=== PATIENT | male | born 1945 | race Caucasian/White ===

== ENCOUNTER → 2021-11-04 | Day surgery (SDC) | payer MEDICARE, OTHER ==
[2021-11-01 11:29] LABS: BASOPHILS % 0.5 % (0.0-1.0); EOSINOPHILS # (AUTO) 0.2 (0.0-0.4); EOSINOPHILS % 2.2 % (0.0-6.0); HEMATOCRIT 42.1 % (38.2-49.6); HEMOGLOBIN 12.3 g/dL (14.0-18.0); LYMPHOCYTES # (AUTO) 1.1 (1.0-3.2); LYMPHOCYTES % 13.8 % (18.0-39.1); MEAN CORPUSCULAR HEMOGLOBIN 28.3 pg (28-32); MEAN CORPUSCULAR HGB CONC 29.2 g/dL (31-35); MEAN CORPUSCULAR VOLUME 96.8 fL (81-99); MONOCYTES % 12.6 % (4.4-11.3); NEUTROPHILS # (AUTO) 5.7 (2.1-6.9); NEUTROPHILS % 70.8 % (38.7-80.0); PLATELET COUNT 192 x10e3/uL (140-360); RED BLOOD COUNT 4.35 x10e6/uL (4.3-5.7); RED CELL DISTRIBUTION WIDTH 15.4 % (11.7-14.4)
[2021-11-01 12:03] LABS: ANION GAP 14.9 mmol/L (8-16); CALCIUM 9.4 mg/dL (8.4-10.2); CREATININE, SERUM 1.24 mg/dL (0.72-1.25); POTASSIUM 4.9 mmol/L (3.5-5.1)
[~2021-11-04] MED LIST: ACETAMINOPHEN-1 EAC4 PF; ACETAMINOPHEN/CODEINE 300MG - 30MG TAB ONE; ALLOPURINOL100 MG PO; AMLODIPINE BESYL5 MG PO; AREDS PO; BUPIVACAINE HCL 0.25% 10ML MPF VIAL INJ ONE; CLINDAMYCIN 600MG / 50ML 50 ML IV ONE; DEXAMETHASONE SOD PHOS INJ 4 MG/ML SDV ONE; DEXTROSE 5% 250ML 250 ML IV ONE; DOXYCYCLINE HY100 M3 PO; EPHEDRINE SULFATE INJ 50 MG/ML VIAL ONE; FLOMAX0.4 MG PO; GLIMEPIRIDE2 MG PO; JANUVIA100 MG PO; KETOROLAC TROMETHAMINE 30 MG/ML VIAL ONE; LIDOCAINE HCL 2% LOCAL INJ 5 ML SDV VIAL INJ ONE; LIPITOR20 MG PO; LISINOPRIL20 MG PO; METFORMIN HCL500 MG PO; MUPIROCIN 2% OINT 22 GM TUBE ONE; ONDANSETRON HCL INJ 2MG/ML 2ML 2 MG/ML VIAL ONE; OXYBUTYNIN CHLOR5 MG PO; PROPOFOL IV EMULSION 10 MG/ML 20 ML VIAL ONE; SERTRALINE HCL50 MG PO; SEVOFLURANE INHAL SOLN 250 ML PEN BTL ONE; VICODIN PO; ZETIA10 MG PO
[2021-11-04 09:15] VITALS: BP 127/96
== END | disposition home or self-care (01) ==
LOC: OR 06:03
PROVIDERS: ATTEND Plastic Surgery
DX: G56.02 Carpal tunnel syndrome, left upper limb (principal); M65.832 Other synovitis and tenosynovitis, left forearm; M65.351 Trigger finger, right little finger; I10 Essential (primary) hypertension; E11.9 Type 2 diabetes mellitus without complications; I25.10 Atherosclerotic heart disease of native coronary artery without angina pectoris; I48.0 Paroxysmal atrial fibrillation; I49.3 Ventricular premature depolarization; I44.0 Atrioventricular block, first degree; I45.10 Unspecified right bundle-branch block; M54.2 Cervicalgia; M54.9 Dorsalgia, unspecified; Z88.0 Allergy status to penicillin; Z01.810 Encounter for preprocedural cardiovascular examination; Z01.812 Encounter for preprocedural laboratory examination; Z01.818 Encounter for other preprocedural examination; Z20.822 Contact with and (suspected) exposure to COVID-19; Z79.84 Long term (current) use of oral hypoglycemic drugs; Z79.899 Other long term (current) drug therapy; Z86.718 Personal history of other venous thrombosis and embolism
CPT/HCPCS: 0223U; 25115; 26055; 36415 ×2; 64999; 71046; 80048; 82948; 85025; 93005; C9353; J1100; J1885; J2001; J2405; J2704; J7070